=== PATIENT | male | born 1995 | race Caucasian/White ===

== ENCOUNTER 2017-02-01 16:36 | Emergency (ER) | payer BC ==
[~2017-02-01] VITALS: Ht 182.9 cm; Wt 81.0 kg
[2017-02-01 16:38] VITALS: Ht 182.9 cm; Wt 81.0 kg
[2017-02-01] MEDS ORDERED: KETOROLAC TROMETHAMINE 30 MG/ML VIAL IV STA (16:55)
[2017-02-01] MEDS ORDERED: SODIUM CHLORIDE 0.9% 1000ML 2,000 ML IV STA (16:55)
[2017-02-01] MEDS ORDERED: ONDANSETRON 4MG OD TAB PO ONE (17:00)
--- NOTE | 2017-02-01 17:05 | EMERGENCY ROOM VISIT NOTE ---
History Report prepared by Karissa: Linus Milan Under the Supervision of: Dr. Wagner Ryder M.D. First contact with patient: 16:43 Chief Complaint: FEVER Stated Complaint: FEVER 102.6, CHILLS, LIGHT NAUSEA, DIZZY History of Present Illness The patient is a 21 year old male who presents to the Emergency Room with complaints of a fever that began two days ago. His temperature in triage was 38.9 C. A couple of days ago, he went to [facility] to be evaluated for his tachycardia. While being examined, they noticed that he was febrile. He received a chest x-ray and laboratory tests that were negative. He notes that he started taking Vyvanse recently as well. His temperature has worsened. He also began to experience fatigue, nausea, shakiness, dizziness, a productive cough, sore throat, and body aches. He denies any congestion, rhinorrhea, rash, or abnormal urinary symptoms. He denies any past medical history. He took two dosages of Tylenol today. He is allergic to Amoxicillin and Penicillin. Source of History: patient Onset: two days ago Position: other (Global) Symptom Intensity: 38.9 C Quality: other (Fever) Timing: worsening Associated Symptoms: + sorethroat, + cough, + nausea, + fatigue, No urinary symptoms, No rash Review of Systems See HPI for pertinent positives & negatives. A total of 10 systems reviewed and were otherwise negative. Past Medical & Surgical Medical Problems: (1) No Known Active Medical Problems Family History Cancer Diabetes mellitus FHx: lung disease Hypertension Social History Smoking Status: Never Smoker Smokeless Tobacco Use: No Alcohol Use: other (Rarely) Drug Use: none Marital Status: single Housing Status: lives alone Occupation Status: [employer] student Current/Historical Medications Scheduled Lisdexamfetamine Dimesylate (Vyvanse), 30 MG PO DAILY Allergies Coded Allergies: Azithromycin (Verified Allergy, Intermediate, HIVES, 02/01/17) Uncoded Allergies: PEANUTS (Allergy, Severe, " THROAT TIGHTNESS", 02/01/17) PENICILLIN (Allergy, Unknown, UNKNOWN - CHILDHOOD, 02/01/17) Physical Exam Vital Signs Date Time Temp Pulse Resp B/P (MAP) Pulse Ox O2 Delivery O2 Flow Rate FiO2 02/01/17 18:05 37.6 106 18 131/58 96 Room Air 02/01/17 16:38 38.9 141 20 108/53 96 Room Air Physical Exam GENERAL: Patient is in no acute distress. HEENT: No acute trauma, normocephalic atraumatic, mucous membranes moist, no nasal congestion, no scleral icterus. Throat erythema with tonsillar exudate. No peritonsillar abscess. NECK: No stridor, no adenopathy, no meningismus, trachea is midline. Flexes chin to chest without pain or difficulty. LUNGS: Clear to auscultation bilaterally, no wheeze, no rhonchi, breath sounds equal. HEART: Tachycardic with a regular rhythm. No murmurs. ABDOMEN: Soft, nontender, bowel sounds positive, no hernias, no peritonitis. EXTREMITIES: No cyanosis or edema, full range of motion of all the joints without pain or difficulty, no signs for acute trauma. NEUROLOGIC: Oriented x 3, no acute motor or sensory deficits, no focal weakness. SKIN: No rash, no jaundice, no diaphoresis. Medical Decision & Procedures Laboratory Results 02/01/17 17:09 Red Blood Count 4.87, Mean Corpuscular Volume 84.6, Mean Corpuscular Hemoglobin 28.7, Mean Corpuscular Hemoglobin Concent 34.0, Mean Platelet Volume 10.9, Neutrophils (%) (Auto) 77.1, Lymphocytes (%) (Auto) 11.9, Monocytes (%) (Auto) 10.3, Eosinophils (%) (Auto) 0.0, Basophils (%) (Auto) 0.4, Neutrophils # (Auto ) 6.10, Lymphocytes # (Auto) 0.94, Monocytes # (Auto) 0.81, Eosinophils # (Auto ) 0.00, Basophils # (Auto) 0.03 02/01/17 17:09 Test 02/01/17 17:09 White Blood Count 7.90 K/uL (4.8-10.8) Red Blood Count 4.87 M/uL (4.7-6.1) Hemoglobin 14.0 g/dL (14.0-18.0) Hematocrit 41.2 % (42-52) Mean Corpuscular Volume 84.6 fL (80-100) Mean Corpuscular Hemoglobin 28.7 pg (25-34) Mean Corpuscular Hemoglobin Concent 34.0 g/dl (32-36) Platelet Count 176 K/uL (130-400) Mean Platelet Volume 10.9 fL (7.4-10.4) Neutrophils (%) (Auto) 77.1 % Lymphocytes (%) (Auto) 11.9 % Monocytes (%) (Auto) 10.3 % Eosinophils (%) (Auto) 0.0 % Basophils (%) (Auto) 0.4 % Neutrophils # (Auto) 6.10 K/uL (1.4-6.5) Lymphocytes # (Auto) 0.94 K/uL (1.2-3.4) Monocytes # (Auto) 0.81 K/uL (0.11-0.59) Eosinophils # (Auto) 0.00 K/uL (0-0.5) Basophils # (Auto) 0.03 K/uL (0-0.2) RDW Standard Deviation 40.0 fL (36.4-46.3) RDW Coefficient of Variation 13.1 % (11.5-14.5) Immature Granulocyte % (Auto) 0.3 % Immature Granulocyte # (Auto) 0.02 K/uL (0.00-0.02) Anion Gap 6.0 mmol/L (3-11) Est Creatinine Clear Calc Drug Dose 141.0 ml/min Estimated GFR () 139.1 Estimated GFR (Non- 120.0 BUN/Creatinine Ratio 8.3 (10-20) Calcium Level 8.8 mg/dl (8.5-10.1) Total Bilirubin 0.8 mg/dl (0.2-1) Aspartate Amino Transf (AST/SGOT) 18 U/L (15-37) Alanine Aminotransferase (ALT/SGPT) 19 U/L (12-78) Alkaline Phosphatase 59 U/L (45-117) Total Protein 7.4 gm/dl (6.4-8.2) Albumin 4.1 gm/dl (3.4-5.0) Globulin 3.3 gm/dl (2.5-4.0) Albumin/Globulin Ratio 1.2 (0.9-2) Monoscreen NEG (NEG) Laboratory results reviewed by me. Medications Administered Medications (Trade) Dose Ordered Sig/Igor Route Start Time Stop Time Status Last Admin Dose Admin Sodium Chloride 2,000 ml @ 999 mls/hr Q2H1M STAT IV 02/01/17 16:55 02/01/17 18:55 02/01/17 17:20 999 MLS/HR Ketorolac Tromethamine (Toradol Inj) 30 mg NOW STAT IV 02/01/17 16:55 02/01/17 16:57 DC 02/01/17 17:20 30 MG Ondansetron HCl (Zofran Odt) 4 mg ONE ONCE PO 02/01/17 17:00 02/01/17 17:01 DC 02/01/17 17:18 4 MG ED Course 1643: The patient was evaluated in room B8. A complete history and physical exam was performed. 1655: Ordered Toradol Inj 30 mg IV, Sodium Chloride 2000 ml @ 999 mls/hr IV 1700: Ordered Zofran Odt 4 mg PO 1807: Reevaluated the patient. Discussed results and discharge instructions: He verbalized understanding and agreement. The patient is ready for discharge. Medical Decision Differential diagnosis includes but is not limited to strep pharyngitis, viral illness, dehydration, mono, pneumonia, UTI, sepsis, bacteremia, and cellulitis. There is no leukocytosis or concerning anemia. No significant electrolyte abnormality, kidney failure or hepatitis. Strep testing is negative. [place] testing is negative. On exam, the patient was febrile, he was not toxic. There was no evidence for meningismus. He did not have findings suggestive of pneumonia-recent chest x-ray was read as negative. Patient received IV saline, IV Toradol and oral Zofran, he feels better. His fever has decreased, his heart rate has decreased. The patient has a viral pharyngitis and generalized viral illness. Rest, hydration, [id number] fever control were suggested. If worsening, he should return. Medication Reconcilliation Current Medication List: was personally reviewed by me Blood Pressure Screening Patient's blood pressure: Low blood pressure Blood pressure disposition: Did not require urgent referral Impression Primary Impression: Fever Additional Impression: Tonsillitis Scribe Attestation The scribe's documentation has been prepared under my direction and personally reviewed by me in its entirety. I confirm that the note above accurately reflects all work, treatment, procedures, and medical decision making performed by me. Departure Information Dispostion Home / Self-Care Referrals No Doctor, Assigned (PCP) Forms HOME CARE DOCUMENTATION FORM, IMPORTANT VISIT INFORMATION Patient Instructions My [facility] Additional Instructions fluids rest motrin and or tylenol for fever and aches return for worsening symptoms as discussed see [facility] friday for a recheck lab testing, strep testing and mono testing today was all ok Problem Qualifiers Primary Impression: Fever Fever type: unspecified Qualified Codes: R50.9 - Fever, unspecified
[2017-02-01] MEDS ORDERED: LISD30CA4 PO (17:14)
[2017-02-01 17:34] LABS: BASO % 0.4 %; BASO ABS # 0.03 K/uL (0-0.2); COMPLETE YES; HEMATOCRIT 41.2 % (42-52); IG% 0.3 %; LYMPH % 11.9 %; LYMPH ABS # 0.94 K/uL (1.2-3.4); MEAN CELL VOLUME 84.6 fL (80-100); MEAN CORPUSCULAR HEMOGLOBIN 28.7 pg (25-34); MEAN PLATELET VOLUME 10.9 fL (7.4-10.4); MONO % 10.3 %; NEUT % 77.1 %; PLATELET COUNT 176 K/uL (130-400); RED BLOOD COUNT 4.87 M/uL (4.7-6.1)
[2017-02-01 17:37] LABS: BUN/CREATININE RATIO 8.3 (10-20); CALCIUM 8.8 mg/dl (8.5-10.1); CREATININE 0.91 mg/dl (0.60-1.40); POTASSIUM 3.5 mmol/L (3.5-5.1)
[2017-02-01 17:40] LABS: ALB/GLOB RATIO 1.2 (0.9-2)
[2017-02-01 18:11] VITALS: BP 131/58; PULSE 106; TEMP 37.6; O2SAT 96
== END 2017-02-01 18:13 | disposition home or self-care (01) ==
LOC: C.EDB 16:38
DX: J03.90 Acute tonsillitis, unspecified (principal); Z79.899 Other long term (current) drug therapy; Z88.1 Allergy status to other antibiotic agents; Z80.9 Family history of malignant neoplasm, unspecified; Z83.3 Family history of diabetes mellitus; Z82.49 Family history of ischemic heart disease and other diseases of the circulatory system